=== PATIENT | female | born 2005 | race Caucasian/White ===

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

== ENCOUNTER → 2024-09-25 | Outpatient (CLI) | payer BC ==
--- NOTE | 2024-09-26 09:18 | MR ---
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 COMPARISON: None. TECHNIQUE: Multi planar, multi sequence imaging was performed through the brain. The patient was then given 6.5 cc of Gadobutrol intravenously and multi planar, T1 fat-saturation images were obtained. FINDINGS: The mar-white junctions, ventricular system, basal cisterns appear unremarkable. Age-appropriate cer ebral parenchymal volume. Diffusion-weighted imaging shows no evidence of restricted diffusion to sug gest acute/subacute infarct. Intracranial arterial flow voids are maintained. Midline structures show no abnormality. No FLAIR signal abnormality identified.. The susceptibility weighted images do not r eveal any evidence for micro-hemorrhage. After administration of gadolinium, no abnormal enhancement is seen. The bone marrow signal is within normal limits. The paranasal sinuses and globes are unremarkable. IMPRESSION: No evidence of intracranial mass, acute/subacute infarct, or abnormal enhancement. [facility], , 09/26/2024 9:15 AM
== END | disposition home or self-care (01) ==
LOC: RADMRIMAIN 18:28
PROVIDERS: ATTEND Family Medicine
DX: H57.02 Anisocoria (principal)
CPT/HCPCS: 70553; A9585